=== PATIENT | male | born 1990 | race Hispanic/Latino ===

== ENCOUNTER → 2025-03-31 | Day surgery (SDC) | payer OTHER ==
[2025-03-28 13:13] LABS: BASOPHILS % 0.8 % (0.0-1.0); EOSINOPHILS % 0.3 % (0.0-6.0); LYMPHOCYTES % 22.4 % (18.0-39.1); MONOCYTES % 7.1 % (4.4-11.3); NEUTROPHILS % 69.1 % (38.7-80.0); RED CELL DISTRIBUTION WIDTH 13.5 % (11.7-14.4)
[2025-03-28 13:50] LABS: EST GLOMERULAR FILTRATION RATE 99.0 ML/MIN (>=60)
[~2025-03-31] MED LIST: ACETAMINOPHEN 1000 MG/100 ML 100 ML IV ONE; ASPIRIN81 MG PO; CAPLYTA21 MG PO; CEFTRIAXONE 1 GM VIAL ONE; DEXAMETHASONE SOD PHOS INJ 4 MG/ML SDV ONE; FENTANYL CITRATE/PF 100MCG/2 ML INJ ONE; FOLIC ACID0.4 MG PO; LIDOCAINE HCL 2% LOCAL INJ 5 ML SDV VIAL INJ ONE; METOCLOPRAMIDE HCL 10 MG/2ML VIAL ONE; MIDAZOLAM HCL 2 MG/2 ML VIAL ONE; MIDAZOLAM HCL 2MG/ML ORAL LIQ CUP ONE; ONDANSETRON HCL INJ 2MG/ML 2ML 2 MG/ML VIAL ONE; PANTOPRAZOLE SO40 MG PO; PROPOFOL IV EMULSION 10 MG/ML 20 ML VIAL ONE; ROCURONIUM BROMIDE 1 ML IV ONE; SERTRALINE HCL50 MG PO; SUGAMMADEX SODIUM 200 MG/2 ML VIAL IV ONE
[2025-03-31] MEDS: LACTATED RINGER'S 1,000 ML ONE (09:02)
[2025-03-31 12:42] VITALS: TEMP 97.9
[2025-03-31] MEDS: FENTANYL CITRATE/PF 100MCG/2 ML INJ IV ONE ×2 (13:00→13:05)
[2025-03-31] MEDS: HYDROCODONE/APAP 5MG-325MG TAB ONE (14:00)
[2025-03-31 14:20] VITALS: BP 123/79; PULSE 86; RESP 18; O2SAT 98
== END | disposition home or self-care (01) ==
LOC: OR 07:49
PROVIDERS: ATTEND Surgery
DX: K80.12 Calculus of gallbladder with acute and chronic cholecystitis without obstruction (principal); K76.0 Fatty (change of) liver, not elsewhere classified; K82.8 Other specified diseases of gallbladder; Q90.9 Down syndrome, unspecified; K21.9 Gastro-esophageal reflux disease without esophagitis; F41.9 Anxiety disorder, unspecified; Z01.810 Encounter for preprocedural cardiovascular examination; Z01.812 Encounter for preprocedural laboratory examination; Z79.82 Long term (current) use of aspirin; Z79.899 Other long term (current) drug therapy
CPT/HCPCS: 36415; 47562; 80053; 85025; 88304; 93005; C1766; J0131; J0696; J1100; J2405; J2704; J2765; J3010; J7121; J2003; J2250